=== PATIENT | male | born 1960 ===

== ENCOUNTER 2018-01-20 15:34 | Emergency (ER) | payer SELFPAY ==
[2018-01-20 16:20] LABS: ANION GAP 14.5; CHLORIDE,CL 104 mmol/L (101-111); SODIUM,NA 139 mmol/L (135-145)
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
== END 2018-01-20 17:14 ==
LOC: DL.ED 15:34
DX: F10.129 Alcohol abuse with intoxication, unspecified (principal); R45.851 Suicidal ideations; F17.210 Nicotine dependence, cigarettes, uncomplicated; Y90.8 Blood alcohol level of 240 mg/100 ml or more
CPT/HCPCS: 36415; 80053; 80305; 85025; 99284; 99285; G0480